=== PATIENT | female | born 2000 | race Caucasian/White ===

== ENCOUNTER 2021-07-29 04:15 | Emergency (ER) | payer OTHER ==
[~2021-07-29] VITALS: Ht 172.7 cm; Wt 63.5 kg
[2021-07-29 04:20] VITALS: BP 143/88
--- NOTE | 2021-07-29 04:20 | NUR ---
TO BED AMBULATORY
--- NOTE | 2021-07-29 04:24 | NUR ---
Patient BIB by family from home. C/O left ear pain x 1 day. Patient reported, had left ear pain since yesterday last night. A/O,X4, left ear pain, pain rate 8/10, no discharge.
--- NOTE | 2021-07-29 04:33 | NUR ---
Dr. Coulter at bedside to exam patient.
[2021-07-29] MEDS ORDERED: AMOX-1000 PO ×2 (04:35→04:37)
[2021-07-29 04:44] VITALS: BP 143/88
== END 2021-07-29 04:44 | disposition home or self-care (01) ==
LOC: MED 04:15
DX: H66.92 Otitis media, unspecified, left ear (principal); Z79.899 Other long term (current) drug therapy
CPT/HCPCS: 99283